=== PATIENT | female | born 1955 | race Caucasian/White ===

== ENCOUNTER 2023-09-14 05:48 | Emergency (ER) | payer MEDICARE, SELFPAY ==
[2023-09-14 05:50] VITALS: BP 180/104
--- NOTE | 2023-09-14 06:03 | ED.GENMED ---
History of Present Illness
General
Chief Complaint: Heart Rate Problem
Source: patient and spouse
Exam Limitations: none
Time Seen by Provider: 09/14/23 06:02
Nursing documentation reviewed up to this point in time: agreed with
History of Present Illness
History of Present Illness:
The patient is a 68-year-old female with a past medical history of thyroid disease, hyperlipidemia, and wpj-cxwaejo-daxhwdbbd diabetes who comes in with complaints of waking up this morning with palpitations and chest heaviness. Patient reports
that it lasted about 1 hour and now feels better but she still has some pressure in the left side of her chest. Initially, patient's EKG look like a normal sinus rhythm, however, on the monitoring specialist strip, patient had a rapid, irregular heart
rhythm recorded. Patient now appears to be in a normal sinus rhythm on the monitoring specialist. She denies a history of A-fib. She reports that from time to time she has very brief palpitations which subside within seconds. She denies history of PE
and DVT. She denies a history of stroke.
Past History
Past History
ED Past Medical History: Hypercholesterolemia, Other (Meningioma) and Other (Autoimmune thyroid disease)
ED Past Surgical History: Other
Social History
Tobacco: Non-smoker
Alcohol: Other
Drug: None
Personal:
Living: with family
Employment: Other
Family History
Family History: Other
Review of Systems
Review of Systems
Allergies reviewed?: Yes
All Other Systems: ROS reviewed and negative except as documented in HPI and ROS
Constitutional: Reports no symptoms
EENT: Reports no symptoms
Respiratory: Reports no symptoms
Cardiac: Reports chest pain and palpitations
ABD/GI: Reports no symptoms
: Reports no symptoms
Musculoskeletal: Reports no symptoms
Skin: Reports no symptoms
Neurological: Reports no symptoms
Endocrine: Reports no symptoms
Hematologic/Lymphatic: Reports no symptoms
Psychiatric: Reports no symptoms
Phy Exam
Physical Exam
Physical Exam:
Physical Exam
General: no apparent distress, not acutely ill, well-appearing
Neck: supple. no meningeal signs. normal psoterior pharynx
Heart: s1/s2 regular rate and rhythm, no murmur. equal radial pulses.
Lungs: no acute respiratory distress. clear bilaterally
Abdomen: normal bowel sounds. not tender. no CVAT
Neuro: alert and oriented. no focal neurological deficits
Skin: no rash
Psychiatric: well kept. interactive and cooperative
Extremities: no edema. no calf tenderness. negative homans. good distal pulses
Scores
[id number] Score for Afib Stroke Risk
Age in Years (65=0, 65-74=1, >/=75=2): 65-74
Sex (Female=+1): Female
Congestive Heart Failure History (Yes=+1): No
Hypertension History (Yes=+1): No
Stroke/TIA/Thromboembolism History (Yes=+2): No
Vascular Disease History (Yes=+1): No
Diabetes Mellitus (Yes=+1): Yes
Score: 3
Anticoagulation Recommendations: Recommend anticoagulation (as validated in nonvalvular fib)
Course
Orders/Labs/Results
Orders:
Orders
09/14/23 05:54
Electrocardiogram (*1) Urgent
Reason for Study: Tachycardia
EKG- Treatment ONCE
09/14/23 06:15
Cardiac Monitoring- Treatment ONCE
IV Insert/Care/Rem.- Treatment PRN
O2 Therapy [RESP] Urgent
Titrate/Wean O2 to maintain O2 sat greater than (%): 90
Special Instructions: Maintain sats >/=90%
Pulse Ox/spot Check [RESP] Urgent
Quantity: 1
Special Instructions: ON ROOM AIR
09/14/23 06:17
Complete Blood Count/With Diff Urgent
Comprehensive Metabolic Panel Urgent
TSH Urgent
Comment: ADD ON
Troponin I Urgent
09/14/23 06:34
Add On- LAB Urgent
Tests Added?: TSH
09/14/23 06:44
Electrocardiogram (*1) Urgent
Reason for Study: Palpitations
EKG- Treatment ONCE
Abnormal Lab Results
09/14/23
06:17
MPV 12.2 H fL
(7.4-10.4)
Glucose 143 H mg/dl
(70-99)
09/14/23 06:17
09/14/23 06:17
Vital Signs
Initial and Last Documented VS:
Initial Vital Signs
Temp Pulse Resp BP Pulse Ox
97.4 F 155 24 180/104 100
09/14/23 05:50 09/14/23 05:50 09/14/23 05:50 09/14/23 05:50 09/14/23 05:50
Last Documented Vital Signs
Temp Pulse Resp BP Pulse Ox
97.4 F 85 13 148/73 96
09/14/23 05:50 09/14/23 06:56 09/14/23 06:56 09/14/23 06:55 09/14/23 06:30
MDM/Problems Addressed
Differential Diagnosis Includes:
A-fib with RVR, AV marco tachycardia, a flutter
MDM/Problems Addressed:
Patient presents with acute palpitations and chest pain
Acute Exacerbation and/or Progression of Chronic Illness:
Patient is acutely hypertensive, however, she admits she does not feel well and just experienced tachycardia.
Acute Exacerbation and/or Progression of Chronic Illness: HTN
*Pulse Oximetry
Patient hypoxic: no
*EKG
Interpreted by ED Provider?: Yes
Interpretation: abnormal
Comparison EKG: no comparison EKG present
Rate: normal
Rhythm: sinus
Troutman: normal axis
Interval: normal interval
QRS Pattern: normal QRS
Ischemia: non-specific ST changes
*Director Of [employer]ustainable [employer] Interpretation
Rate: normal
Interpretation: normal
Rhythm: sinus
*Critical Care Note
Total Time (30-74mins, 75-104mins- exclusive of procedures): Not Applicable
Data Reviewed
Review of Other/Old Records Reveals: Testing (Cardiac echo appears normal from 2020)
Source: patient and spouse
Patient Management
Social determinants of health affecting care: Living situation and Strong social support
Discussion with other providers: Other (Dr. Kyle New from cardiology)
Escalation/DeEscalation of care consider admission/obs:
Although patient's EKGs do not capture the atrial fibrillation, when patient was on the monitoring specialist, we did capture a run of atrial fibrillation with heart rate in the 150s. We did scan this into the patient's chart and to give her a copy of
this as well. Patient reports that she had symptoms for about an hour. We have watched the patient in the emergency department for few hours and she has remained in a normal sinus rhythm. Because her symptoms were so brief, decision made to not
start patient on anticoagulation, especially because she is so hesitant to be started on any new medication. I did speak to Dr. Kyle New who recommended that patient be started on a beta-joanna and I explained to the patient that this is
important to decrease the threshold of her experiencing A-fib again, however, patient adamantly does not want to be started on a beta-joanna at this time. She reports that her blood pressure and heart rate are generally much lower than what they
are today. She reports she was on a beta-joanna in the past and she did not like how it made her feel. Given that patient looks so stable and well and her symptoms were so brief, I feel it is okay at this time to hold off on further pressuring
her to start new medication. Patient agreed to call cardiology office today to schedule an appointment for soon as possible. I explained to her that if the A-fib returns, she is certainly at increased risk of stroke. Patient understands this
risk. She seems very reliable and motivated to follow-up with cardiology.
Update Note
Update Note:
7:25 AM patient remains in a normal sinus rhythm. Second EKG done at 7:26 AM shows a normal sinus rhythm with heart rate of [address] waves, no acute ischemia
ED Attending Note
-
Portions of this chart may have been created with voice recognition software.� Occasional wrong word or��sound alike� substitutions may have occurred due to the inherent limitations of voice recognition software.
Discharge Plan
Departure
Patient Disposition: Home (Routine Discharge)
Date of Disposition: 09/14/23
Time of Disposition: 08:32
Patient with high blood pressure during this ER visit?: Yes
Condition: Good
Covid-19: Not Applicable
Discharge Problem:
Atrial fibrillation
Instructions: Atrial Fibrillation (DC), BLOOD PRESSURE
Prescriptions:
No Action
atorvastatin 20 mg Tablet
20 mg PO HS
polyethylene glycol 3350 [Miralax] 17 gram Powder In Packet
17 g PO QPMPRN PRN (Reason: constipation)
esomeprazole magnesium 40 mg Capsule,Delayed Release(Dr/Ec)
40 mg PO DAILY
magnesium 200 mg Tablet
200 mg PO HS
Patient Comments:
09/14/2023, uses capsule.
Systane (PF) 0.4-0.3 % Dropperette
0 drp BOTH EYES BIDPRN PRN (Reason: dry eyes)
Patient Comments:
09/14/2023, pt. states to use 1 dropperette per eye.
metformin 500 mg Tablet,Er Omari.Retention 24 Hr
1,000 mg PO QPM
cholecalciferol (vitamin D3) 50 mcg (2,000 unit) Tablet
50 mcg PO DAILY
cyanocobalamin (vitamin B-12)
1 tab PO DAILY
Patient Comments:
09/14/2023, sublingual tablet; pt. unsure of strength.
Referrals:
Librado Angela, DO [Family Provider] -
Paty Gracia MD [Active] - (Call today to schedule an appointment for as soon as possible. Tell the office that the emergency doctor discussed your case with Dr Kyle New from cardiology)
Interventions
Interventions:
*Risk Screen - Suicide Last Done: 09/14/23 06:09
*General Assessment Last Done: 09/14/23 06:09
*Neglect/Abuse Screening Last Done: 09/14/23 06:09
*ED COVID-19 Vaccine History Last Done: 09/14/23 06:09
*Nursing Disposition Last Done: 09/14/23 08:40
ED- Cardiac Assessment Last Done: 09/14/23 06:09
ED- Pulmonary Assessment Last Done: 09/14/23 06:09
Discharge Date and Time
Print Language: LITHUANIAN
[2023-09-14 06:38] LABS: % Basophils 0.9 % (0-2); % Eosinophils 3.9 % (0-6); % Immature Granulocytes 0.3 % (0-0.5); % Lymphocytes 33.1 % (20.5-51.1); % Neutrophils 55.8 % (42.2-75.2); Absolute Basophils 0.1 10^3/uL (0-0.2); Absolute Eosinophils 0.3 10^3/uL (0-0.7); Absolute Lymphocytes 2.2 10^3/uL (1.2-3.4); Absolute Monocytes 0.4 10^3/uL (0.1-0.6); Absolute Neutrophils 3.6 10^3/uL (1.4-6.5); Hematocrit 40.5 % (37.0-47.0); Hemoglobin 13.7 g/dL (12.0-16.0); Mean Corp Hgb Conc. 33.8 g/dL (33.0-37.0); Mean Corpuscular Hgb 28.3 pg (27.0-31.0); Mean Corpuscular Volume 83.7 fL (81.0-99.0); Mean Platelet Volume 12.2 fL (7.4-10.4); Nucleated Red Blood Cells % 0 %; Platelet Count 143 10^3/uL (130-400); Red Blood Cell Count 4.84 10^6/uL (4.20-5.40); Red Cell Dist. Width 13.9 % (11.5-14.5); White Blood Cell Count 6.5 10^3/uL (4.8-10.8)
[2023-09-14 06:46] LABS: ALT (SGPT) 27 U/L (0-35); AST (SGOT) 33 U/L (14-36); Albumin 4.2 g/dl (3.5-5.0); Alkaline Phosphatase 118 U/L (38-126); Blood Urea Nitrogen 13 mg/dl (7-17); Calcium 9.6 mg/dl (8.4-10.2); Carbon Dioxide 27 mmol/L (22-30); Chloride 104 mmol/L (98-107); Glucose 143 mg/dl (70-99); Potassium 3.8 mmol/L (3.5-5.1); Sodium 138 mmol/L (135-145); Total Bilirubin 0.4 mg/dl (0.2-1.3); Total Protein 6.6 g/dl (6.3-8.2); eGFR > 60.00
[2023-09-14 06:55] VITALS: BP 148/73
[2023-09-14 06:57] LABS: Troponin I < 0.012 ng/ml
[2023-09-14 07:00] VITALS: BP 150/74
[2023-09-14 07:55] LABS: TSH 3.56 uIU/ml (0.47-4.68)
[2023-09-14 08:00] VITALS: BP 145/66
== END 2023-09-14 08:44 | disposition home or self-care (01) ==
LOC: EMR 05:48
PROVIDERS: EMERGENCY PHYSICIAN Emergency Medicine; FAMILY PHYSICIAN Family Medicine
DX: I48.91 Unspecified atrial fibrillation (principal); I10 Essential (primary) hypertension; E78.00 Pure hypercholesterolemia, unspecified; E11.9 Type 2 diabetes mellitus without complications; E07.9 Disorder of thyroid, unspecified
CPT/HCPCS: 99284; 80053; 84443; 84484; 85025; 93005

== ENCOUNTER → 2023-09-19 10:49 | Outpatient (REF) | payer MEDICARE, SELFPAY | LOC: RAD 10:49 | PROVIDERS: ATTENDING PHYSICIAN Family Medicine | DX: M48.56XA Collapsed vertebra, not elsewhere classified, lumbar region, initial encounter for fracture (principal) | CPT/HCPCS: 77080 ==

== ENCOUNTER → 2023-10-03 13:27 | Outpatient (REF) | payer MEDICARE, SELFPAY | LOC: RCS 13:27 | PROVIDERS: ATTENDING PHYSICIAN Nuclear Medicine Nuclear Cardiology; FAMILY PHYSICIAN Family Medicine | DX: I48.0 Paroxysmal atrial fibrillation (principal); R00.2 Palpitations; R07.2 Precordial pain | CPT/HCPCS: 93017; 93350 ==

== ENCOUNTER → 2023-10-08 06:53 | Outpatient (REF) | payer MEDICARE, SELFPAY | LOC: RCS 06:53 | PROVIDERS: ATTENDING PHYSICIAN Nuclear Medicine Nuclear Cardiology; FAMILY PHYSICIAN Family Medicine | DX: R00.2 Palpitations (principal) | CPT/HCPCS: 93306 ==

== ENCOUNTER 2023-10-30 20:57 | Emergency (ER) | payer MEDICARE, SELFPAY ==
[2023-10-30 20:59] VITALS: BP 187/83
[2023-10-30 21:46] LABS: Urine Albumin Negative (Neg - Trace); Urine Bilirubin Negative (Negative); Urine Character Clear (Clear); Urine Color Straw; Urine Glucose Negative (Negative); Urine Ketone Negative (Negative); Urine Leukocyte 2+ (Negative); Urine Nitrite Negative (Negative); Urine Occult Blood Negative (Negative); Urine Urobilinogen Negative (Neg - 1+)
--- NOTE | 2023-10-30 21:49 | ED.GENMED ---
History of Present Illness
General
Chief Complaint: Urinary Symptoms
Source: patient
Time Seen by Provider: 10/30/23 21:41
History of Present Illness
History of Present Illness:
68yoF with a history of hyperlipidemia, type 2 diabetes, and urethral prolapse presenting for evaluation of difficulty urinating. Patient has been having ongoing issues with urination for a while and has a known urethral prolapse. Patient has been
following with urology and is currently on Flomax and estrogen cream. She was recently prescribed Gemtesa 75mg and she took the first dose around noon today. Since taking this medication, patient has been having increased difficulty with
urination. She states she is only able to urinate a few dribbles at a time. She denies any abdominal pain, flank pain, fevers, vomiting.
Past History
Past History
ED Past Medical History: Hypercholesterolemia, Other (Meningioma) and Other (Autoimmune thyroid disease)
ED Past Surgical History: Other
Social History
Tobacco: Non-smoker
Alcohol: Other
Drug: None
Personal:
Living: with family
Employment: Other
Family History
Family History: Other
Phy Exam
General Physical Exam
General Presentation: well appearing and no apparent distress
General age: appears stated age
General Skin: warm and dry
General Habitus: normal
General Mental: alert
General Hydration: appears well hydrated
Cardiovascular Exam
Cardiovascular Exam: regular rate/rhythm and no murmur
Pulmonary Exam
Pulmonary Exam: lungs clear, no respiratory distress, no rales and no rhonchi
Gastrointestinal Exam
Gastrointestinal Exam: non tender, soft and non distended
Skin Exam
Skin Exam: normal color and warm/dry
Psychiatric Exam
Psychiatric Exam: normal mood/affect
Course
Orders/Labs/Results
Orders:
Orders
10/30/23 21:41
Bladder Scan- Treatment ONCE
10/30/23 21:43
Urinalysis Reflex To Culture Urgent
Date Specimen was Collected: 10/30/23
Time Specimen was Collected: 21:38
Urine Microscopic Reflex Cult Urgent
Urine Culture Urgent
ROSE Source: U
Specimen Description:
Date Specimen was Collected: 10/30/23
Time Specimen was Collected: 21:38
Abnormal Lab Results
10/30/23
21:43
Leukocyte Esterase Rfl 2+ A
(Negative)
Urine Bacteria (Reflex) Few A
(Negative)
Vital Signs
Initial and Last Documented VS:
Initial Vital Signs
Temp Pulse Resp BP Pulse Ox
97.9 F 86 18 187/83 99
10/30/23 20:59 10/30/23 20:59 10/30/23 20:59 10/30/23 20:59 10/30/23 20:59
Last Documented Vital Signs
Temp Pulse Resp BP Pulse Ox
97.9 F 71 16 148/70 98
10/30/23 20:59 10/30/23 22:27 10/30/23 22:27 10/30/23 22:27 10/30/23 22:27
MDM/Problems Addressed
Differential Diagnosis Includes:
68yoF here with difficulty urinating. Hx of urethral prolapse. Took first dose of Gemtesa this afternoon and now having trouble urinating. Otherwise asymptomatic. She is hypertensive with otherwise normal vitals. She is well appearing in no
distress. Abdominal exam is benign. Differential diagnosis includes but is not limited to: medication side effect, urinary retention, UTI
Initial ED plan: Check bladder scan and UA.
*Critical Care Note
Total Time (30-74mins, 75-104mins- exclusive of procedures): Not Applicable
Update Note
Update Note:
Bladder scan 160cc. Patient able to provide urine sample. UA shows few bacteria although there is no overt signs of infection. Urine culture sent. Urinary retention is known side effect of Gemtesa. No indication for Ba catheter at this time and
she is able to void. She was advised to discontinue Gemtesa and f/u with her urologist. ED return precautions discussed. She was discharged in stable condition.
ED Attending Note
-
Portions of this chart may have been created with voice recognition software.� Occasional wrong word or��sound alike� substitutions may have occurred due to the inherent limitations of voice recognition software.
Discharge Plan
Departure
Patient Disposition: Home (Routine Discharge)
Date of Disposition: 10/30/23
Time of Disposition: 22:20
Patient with high blood pressure during this ER visit?: Yes
Discharge Problem:
Difficulty urinating
Instructions: Urinary retention - Discharge instructions
Prescriptions:
No Action
atorvastatin 20 mg Tablet
20 mg PO HS
polyethylene glycol 3350 [Miralax] 17 gram Powder In Packet
17 g PO QPMPRN PRN (Reason: constipation)
esomeprazole magnesium 40 mg Capsule,Delayed Release(Dr/Ec)
40 mg PO DAILY
magnesium 200 mg Tablet
200 mg PO HS
Patient Comments:
09/14/2023, uses capsule.
Systane (PF) 0.4-0.3 % Dropperette
0 drp BOTH EYES BIDPRN PRN (Reason: dry eyes)
Patient Comments:
09/14/2023, pt. states to use 1 dropperette per eye.
metformin 500 mg Tablet,Er Omari.Retention 24 Hr
1,000 mg PO QPM
cholecalciferol (vitamin D3) 50 mcg (2,000 unit) Tablet
50 mcg PO DAILY
cyanocobalamin (vitamin B-12)
1 tab PO DAILY
Patient Comments:
09/14/2023, sublingual tablet; pt. unsure of strength.
Referrals:
Librado Angela, DO [Family Provider] -
Activity Restrictions/Additional Instructions:
Stop taking Gemtesa.
Please follow-up with your urologist. Return to the ER with any worsening symptoms.
Interventions
Interventions:
*Risk Screen - Suicide Last Done: 10/30/23 21:02
*General Assessment Last Done: 10/30/23 21:02
*Neglect/Abuse Screening Last Done: 10/30/23 21:02
ED- Fall Risk Assessment Last Done: 10/30/23 22:29
*ED COVID-19 Vaccine History Last Done: 10/30/23 22:29
*Nursing Disposition Last Done: 10/30/23 22:29
ED-Female Genitourinary Assessment Last Done: 10/30/23 22:27
Discharge Date and Time
Discharge Date/Time: 10/30/23 22:29
Print Language: URDU
[2023-10-30 21:54] LABS: Urine Bacteria Few (Negative); Urine Red Blood Cell 0-2 /HPF (0-2); Urine Squamous Cell 26-30 /LPF (Few)
[2023-10-30 22:27] VITALS: BP 148/70
== END 2023-10-30 22:29 | disposition home or self-care (01) ==
LOC: EMR 20:57
PROVIDERS: EMERGENCY PHYSICIAN Student in an Organized Health Care Education/Training Program; FAMILY PHYSICIAN Family Medicine
DX: R39.198 Other difficulties with micturition (principal); E78.00 Pure hypercholesterolemia, unspecified; E11.9 Type 2 diabetes mellitus without complications
CPT/HCPCS: 99283; 51798; 81003; 81015; 87086

== ENCOUNTER 2023-11-04 00:04 | Emergency (ER) | payer MEDICARE, SELFPAY ==
[2023-11-04] VITALS (21 sets, daily range): BP systolic 109–173; BP diastolic 62–110; BMI 26.5
[2023-11-04] MEDS: CARDIZEM 20 MG IV (00:21)
[2023-11-04] MEDS: NSS 1000 IV (00:23)
[2023-11-04] MEDS: CARDIZEM 25 MG IV (00:32)
[2023-11-04] MEDS: CARDIZEM 125 IV (00:32)
--- NOTE | 2023-11-04 00:37 | ED.GENMED ---
History of Present Illness
<Andreas Cherry PA-C - Last Filed: 11/04/23 03:01>
General
Chief Complaint: Heart Rate Problem
Time Seen by Provider: 11/04/23 00:11
History of Present Illness
History of Present Illness:
68-year-old female with history of [id number] diabetes presents to the emergency department for evaluation of heart palpitations. Symptoms woke her up from sleep within the past 1 hour. She had a similar episode in early September, on
arrival to the emergency department the symptoms that terminated however a brief bout of a tachyarrhythmia was documented on a single rhythm strip that was suspicious for A-fib. She was discharged outpatient cardiology follow-up, a stress test and
echocardiogram were performed and these were unremarkable. She was given metoprolol for as needed use but not started on anticoagulants. Has not had any other bouts since that time. Currently feels chest heaviness but denies overt chest pain or
dyspnea.
Past History
<Andreas Cherry PA-C - Last Filed: 11/04/23 03:01>
Past History
ED Past Medical History: Hypercholesterolemia, Other (Meningioma) and Other (Autoimmune thyroid disease)
ED Past Surgical History: Other
Social History
Tobacco: Non-smoker
Alcohol: Other
Drug: None
Personal:
Living: with family
Employment: Other
Family History
Family History: Other
Review of Systems
<Andreas Cherry PA-C - Last Filed: 11/04/23 03:01>
Review of Systems
Allergies reviewed?: Yes
All Other Systems: ROS reviewed and negative except as documented in HPI and ROS
Phy Exam
<Andreas Cherry PA-C - Last Filed: 11/04/23 03:01>
Physical Exam
Physical Exam:
GEN: Well appearing, NAD, WDWN
HEENT: Oral mucosa moist, no scleral icterus
Cardiac: Markedly tachycardic, no obvious murmur
Lung: No respiratory distress, no tachypnea, Lungs clear to auscultation bilaterally
MSK: No gross deformity or injuries
Skin: Good color, no pallor or jaundice, no rashes
Neuro: AO x3, moves all extremities freely
Psych: Calm, cooperative
Course
<Andreas Cherry PA-C - Last Filed: 11/04/23 03:01>
Orders/Labs/Results
Orders:
Orders
11/04/23 00:08
ECG [Electrocardiogram (*1)] Urgent
Reason for Study: Tachycardia
EKG- Treatment ONCE
11/04/23 00:19
0.9% Sodium Chloride 1000 ml [Nss] 1,000 ml IV BOLUS
Diltiazem HCl [Cardizem] 20 mg IV NOW STA
Diltiazem HCl [Cardizem] 25 mg .ROUTE .STK-MED ONE
11/04/23 00:24
Complete Blood Count/No Diff Urgent
Comprehensive Metabolic Panel Urgent
Magnesium Urgent
11/04/23 00:27
Diltiazem HCl [Cardizem] 25 mg IV NOW STA
11/04/23 00:28
Diltiazem 125 mg/125 ml Nss [Cardizem] 125 mg in 125 ml .ROUTE .STK-MED
Diltiazem HCl [Cardizem] 25 mg .ROUTE .STK-MED ONE
11/04/23 00:30
Diltiazem 125 mg/125 ml Nss [Cardizem] 125 mg in 125 ml IV PER PROTOCOL
Initial dose in mg/hr, then titrate:: 5
Titrate to keep:: Heart rate 80-100 bpm
Titrate by mg/hr:: 5 mg/hr
Frequency of titrations (minutes):: 15
Maximum dose in mg/hr:: 15
11/04/23 00:51
Magnesium Sulfate 2 Gram/50 ml [Magnesium Sulfate] 2 gram in 50 ml IV NOW
Potassium Chloride [KCl] 40 meq PO NOW STA
11/04/23 01:34
Propofol [Diprivan] 20 ml .ROUTE .STK-MED
11/04/23 02:08
EKG [Electrocardiogram (*1)] Urgent
Reason for Study: Atrial Fibrillation
EKG- Treatment ONCE
11/04/23 02:12
Apixaban [Eliquis] 5 mg PO NOW STA
Abnormal Lab Results
11/04/23
00:24
MPV 11.5 H fL
(7.4-10.4)
Glucose 149 H mg/dl
(70-99)
11/04/23 00:24
11/04/23 00:24
Vital Signs
Initial and Last Documented VS:
Initial Vital Signs
Temp Pulse Resp BP Pulse Ox
97.8 F 158 24 115/96 100
11/04/23 00:06 11/04/23 00:06 11/04/23 00:06 11/04/23 00:06 11/04/23 00:06
Last Documented Vital Signs
Temp Pulse Resp BP Pulse Ox
98.0 F 73 14 124/64 97
11/04/23 02:42 11/04/23 02:42 11/04/23 02:42 11/04/23 02:42 11/04/23 02:42
<Josie Baez, DO - Last Filed: 11/04/23 02:17>
Orders/Labs/Results
Orders:
Orders
11/04/23 00:08
ECG [Electrocardiogram (*1)] Urgent
Reason for Study: Tachycardia
EKG- Treatment ONCE
11/04/23 00:19
0.9% Sodium Chloride 1000 ml [Nss] 1,000 ml IV BOLUS
Diltiazem HCl [Cardizem] 20 mg IV NOW STA
Diltiazem HCl [Cardizem] 25 mg .ROUTE .STK-MED ONE
11/04/23 00:24
Complete Blood Count/No Diff Urgent
Comprehensive Metabolic Panel Urgent
Magnesium Urgent
11/04/23 00:27
Diltiazem HCl [Cardizem] 25 mg IV NOW STA
11/04/23 00:28
Diltiazem 125 mg/125 ml Nss [Cardizem] 125 mg in 125 ml .ROUTE .STK-MED
Diltiazem HCl [Cardizem] 25 mg .ROUTE .STK-MED ONE
11/04/23 00:30
Diltiazem 125 mg/125 ml Nss [Cardizem] 125 mg in 125 ml IV PER PROTOCOL
Initial dose in mg/hr, then titrate:: 5
Titrate to keep:: Heart rate 80-100 bpm
Titrate by mg/hr:: 5 mg/hr
Frequency of titrations (minutes):: 15
Maximum dose in mg/hr:: 15
11/04/23 00:51
Magnesium Sulfate 2 Gram/50 ml [Magnesium Sulfate] 2 gram in 50 ml IV NOW
Potassium Chloride [KCl] 40 meq PO NOW STA
11/04/23 01:34
Propofol [Diprivan] 20 ml .ROUTE .STK-MED
11/04/23 02:08
EKG [Electrocardiogram (*1)] Urgent
Reason for Study: Atrial Fibrillation
EKG- Treatment ONCE
11/04/23 02:12
Apixaban [Eliquis] 5 mg PO NOW STA
Abnormal Lab Results
11/04/23
00:24
MPV 11.5 H fL
(7.4-10.4)
Glucose 149 H mg/dl
(70-99)
11/04/23 00:24
11/04/23 00:24
Vital Signs
Initial and Last Documented VS:
Initial Vital Signs
Temp Pulse Resp BP Pulse Ox
97.8 F 158 24 115/96 100
11/04/23 00:06 11/04/23 00:06 11/04/23 00:06 11/04/23 00:06 11/04/23 00:06
Last Documented Vital Signs
Temp Pulse Resp BP Pulse Ox
98.0 F 73 14 124/64 97
11/04/23 02:42 11/04/23 02:42 11/04/23 02:42 11/04/23 02:42 11/04/23 02:42
Procedures
<Andreas Cherry PA-C - Last Filed: 11/04/23 03:01>
Cardioversion
Indication:: Afib
Performed by:: Andreas Cherry PA-C, Josie Baez,
Synchronized?: Yes
Energy Used: 150 joules
Number of attempts: 1
Successful?: Yes
Complications: none
ASA Risk Score: Class I
Any reaction or bad outcome to prior sedation/anesthesia?: No history of a reaction
Sedation level to be attained: moderate
Chart and allergies reviewed: Yes
Patient reassessed prior to sedation: Yes
Time out completed at (validating right patient & procedure): 02:03
History of difficult intubation: No
Airway free of obstruction: Yes
Patient has a gag reflex: Yes
Patient is able to open mouth: Yes
Patient has no dentures: Yes
Patient has no loose teeth: Yes
Medication administered by Provider during Moderate Sedation: IV Propofol (mg)
Total dose administered: 75
Time drug administered: 02:03
Start Time: 02:03
Stop Time: 02:13
<Andreas Cherry PA-C - Last Filed: 11/04/23 03:01>
MDM/Problems Addressed
MDM/Problems Addressed:
Patient was started on IV rate controlling medications on arrival to the emergency department however despite escalating doses of IV diltiazem and IV magnesium the patient remained in a rapid atrial fibrillation. Given the new onset of her symptoms
within the past few hours she is a reasonable cardioversion candidate. After lengthy discussion at the bedside the patient consented to cardioversion, procedure was uncomplicated and she converted to normal sinus rhythm after electrical
cardioversion x 1. Will start the patient on Eliquis, her [id number] is 3 thus she will likely need lifelong anticoagulation. To prevent further bouts of A-fib we will start her on low-dose long-acting metoprolol. She will follow-up as an
outpatient with cardiology
<Andreas Cherry PA-C - Last Filed: 11/04/23 03:01>
Comment
Comment:
EKG independently interpreted by me shows a rapid atrial flutter at a rate of 150 with a 2-1 conduction, QTc of 357
*Critical Care Note
Total Time (30-74mins, 75-104mins- exclusive of procedures): Not Applicable
ED Attending Note
<Andreas Cherry PA-C - Last Filed: 11/04/23 03:01>
-
Portions of this chart may have been created with voice recognition software.� Occasional wrong word or��sound alike� substitutions may have occurred due to the inherent limitations of voice recognition software.
<Josie Baez DO - Last Filed: 11/04/23 02:17>
ED Attending Note
Patient seen and examined by attending physician: Yes
ED Attending Note:
11/04/2023 0215 AM
68-year-old woman with history of paroxysmal atrial fibrillation, 1 previous event, self-limiting 1 month ago.
Presents with recurrent palpitations and found to be in A-fib with rapid ventricular response.
Thus far rate improved with IV Cardizem but she remains somewhat symptomatic. Agreeable to cardioversion.
Patient is bright and alert, pleasant, easily communicative.
Heart is irregularly irregular, mildly tachycardic. She remains hemodynamically stable.
Lungs are clear to auscultation. No respiratory distress.
Patient successfully cardioverted with 1 synchronized shock. Moderate sedation with propofol 75 mg administered by myself.
No complications.
She is now awake and alert, offers no complaints.
As she is [id number] 3, will initiate anticoagulation with Eliquis 5 mg twice daily.
Recommend prompt follow-up with cardiology for recheck.
Discharge Plan
Departure
Patient Disposition: Home (Routine Discharge)
Date of Disposition: 11/04/23
Time of Disposition: 02:48
Patient with high blood pressure during this ER visit?: Yes
Discharge Problem:
Atrial fibrillation with RVR
Instructions: Atrial Fibrillation (DC), Moderate Sedation in Adults (DC)
Prescriptions:
New
Eliquis 5 mg tablet
5 mg PO BID Qty: 60 0RF
metoprolol succinate 25 mg tablet extended release 24 hr
12.5 mg PO DAILY Qty: 30 0RF
No Action
atorvastatin 20 mg Tablet
20 mg PO HS
polyethylene glycol 3350 [Miralax] 17 gram Powder In Packet
17 g PO QPMPRN PRN (Reason: constipation)
esomeprazole magnesium 40 mg Capsule,Delayed Release(Dr/Ec)
40 mg PO DAILY
magnesium 200 mg Tablet
200 mg PO HS
Patient Comments:
09/14/2023, uses capsule.
Systane (PF) 0.4-0.3 % Dropperette
0 drp BOTH EYES BIDPRN PRN (Reason: dry eyes)
Patient Comments:
09/14/2023, pt. states to use 1 dropperette per eye.
metformin 500 mg Tablet,Er Omari.Retention 24 Hr
1,000 mg PO QPM
cholecalciferol (vitamin D3) 50 mcg (2,000 unit) Tablet
50 mcg PO DAILY
cyanocobalamin (vitamin B-12)
1 tab PO DAILY
Patient Comments:
09/14/2023, sublingual tablet; pt. unsure of strength.
Referrals:
Mervin Newell DO [Active] - Follow up in 10 days
Librado Angela, [Family Provider] -
Activity Restrictions/Additional Instructions:
If you notice your heart rate is dropping into the 40s, or if you feel excessive tired, while on metoprolol, please discontinue in favor of NEEDED short acting metoprolol
You will be started on Eliquis to reduce your risk of stroke. If you sustain any blunt injuries to the head or torso while on this medication, you need to seek medical attention IMMEDIATELY
Follow up with your medical delivery technician for further management
Interventions
Interventions:
ED- Cardiac Assessment Last Done: 11/04/23 00:35
ED- Pulmonary Assessment Last Done: 11/04/23 00:35
Discharge Date and Time
Print Language: BAHRAINI
[2023-11-04 00:47] LABS: ALT (SGPT) 22 U/L (0-35); AST (SGOT) 27 U/L (14-36); Albumin 4.3 g/dl (3.5-5.0); Alkaline Phosphatase 115 U/L (38-126); Blood Urea Nitrogen 16 mg/dl (7-17); Calcium 9.9 mg/dl (8.4-10.2); Carbon Dioxide 25 mmol/L (22-30); Chloride 104 mmol/L (98-107); Glucose 149 mg/dl (70-99); Hematocrit 41.2 % (37.0-47.0); Hemoglobin 14.2 g/dL (12.0-16.0); Mean Corp Hgb Conc. 34.5 g/dL (33.0-37.0); Mean Corpuscular Hgb 29.5 pg (27.0-31.0); Mean Corpuscular Volume 85.7 fL (81.0-99.0); Mean Platelet Volume 11.5 fL (7.4-10.4); Platelet Count 152 10^3/uL (130-400); Potassium 3.8 mmol/L (3.5-5.1); Red Blood Cell Count 4.81 10^6/uL (4.20-5.40); Sodium 142 mmol/L (135-145); Total Bilirubin 0.4 mg/dl (0.2-1.3); Total Protein 6.9 g/dl (6.3-8.2); White Blood Cell Count 9.4 10^3/uL (4.8-10.8); eGFR > 60.00
[2023-11-04] MEDS: MAGNESIUM SULFATE 50 IV (01:06)
[2023-11-04] MEDS: KCL 40 MEQ PO (01:06)
[2023-11-04] MEDS: ELIQUIS 5 MG PO (02:30)
== END 2023-11-04 03:10 | disposition home or self-care (01) ==
LOC: EMR 00:04
PROVIDERS: Physician Assistant; EMERGENCY PHYSICIAN Emergency Medicine; FAMILY PHYSICIAN Family Medicine
DX: I48.91 Unspecified atrial fibrillation (principal); R03.0 Elevated blood-pressure reading, without diagnosis of hypertension; E11.9 Type 2 diabetes mellitus without complications
CPT/HCPCS: 99285; 92960; 96374; 96375; 96361; 99152; 80053; 83735; 85027; 93005

== ENCOUNTER 2023-11-15 10:33 | Emergency (ER) | payer MEDICARE, SELFPAY ==
[2023-11-15] VITALS (8 sets, daily range): BP systolic 126–173; BP diastolic 63–83; BMI 26.9
--- NOTE | 2023-11-15 11:40 | ED.GENMED ---
History of Present Illness
General
Chief Complaint: Heart Rate Problem
Source: patient
Exam Limitations: none
Time Seen by Provider: 11/15/23 10:50
Nursing documentation reviewed up to this point in time: agreed with
History of Present Illness
History of Present Illness:
68-year-old female with past medical history of recently diagnosed A-fib currently on Eliquis and metoprolol cardioverted 2 weeks ago presenting to the emergency department today with intermittent tachycardia upon exertion over the past 2 days. She
denies any chest pain or shortness of breath. She is currently asymptomatic while resting in bed.
Past History
Past History
ED Past Medical History: Hypercholesterolemia, Other (Meningioma) and Other (Autoimmune thyroid disease)
ED Past Surgical History: Other
Social History
Tobacco: Non-smoker
Alcohol: Other
Drug: None
Personal:
Living: with family
Employment: Other
Family History
Family History: Other
Review of Systems
Review of Systems
Allergies reviewed?: Yes
All Other Systems: ROS reviewed and negative except as documented in HPI and ROS
Phy Exam
Physical Exam
Physical Exam:
GENERAL: Alert , in no apparent distress
EYE: pupils equal and reactive
NECK: Supple, no significant adenopathy.
ENT: o/p clr, mmm.
CARDIAC: Regular rate and rhythm .
LUNGS: Clear breath sounds bilaterally, no acute respiratory distress, no wheezes/rales/rhonchi
ABDOMEN: Soft, without focal tenderness, no r/g, no cvat
NEUROLOGICAL: Alert and oriented, no focal neuro deficits
SKIN: Warm and dry, skin intact.
MUSCULOSKELETAL: No edema, well perfused.
PSYCH: Normal and appropriate interaction.
Course
Orders/Labs/Results
Orders:
Orders
11/15/23 10:37
ECG [Electrocardiogram (*1)] Urgent
Reason for Study: Atrial Fibrillation
EKG- Treatment ONCE
11/15/23 11:21
Complete Blood Count/With Diff Urgent
Comprehensive Metabolic Panel Urgent
Free T4 Urgent
Comment: ADD
Magnesium Urgent
TSH Urgent
Comment: ADD
11/15/23 11:58
Add On- LAB Urgent
Tests Added?: tsh free t4
11/15/23 13:34
Amiodarone [Pacerone] 200 mg PO NOW STA
Abnormal Lab Results
11/15/23
11:21
WBC 11.0 H 10^3/uL
(4.8-10.8)
MPV 12.0 H fL
(7.4-10.4)
Absolute Neuts (auto) 8.7 H 10^3/uL
(1.4-6.5)
Neutrophils % 79.1 H %
(42.2-75.2)
Lymphocytes % 14.0 L %
(20.5-51.1)
Glucose 150 H mg/dl
(70-99)
11/15/23 11:21
11/15/23 11:21
Vital Signs
Initial and Last Documented VS:
Initial Vital Signs
Temp Pulse Resp BP Pulse Ox
97.7 F 80 20 173/83 98
11/15/23 10:34 11/15/23 10:34 11/15/23 10:34 11/15/23 10:34 11/15/23 10:34
Last Documented Vital Signs
Temp Pulse Resp BP Pulse Ox
97.7 F 57 12 150/65 98
11/15/23 10:34 11/15/23 14:00 11/15/23 14:00 11/15/23 14:00 11/15/23 14:00
MDM/Problems Addressed
MDM/Problems Addressed:
68-year-old female presenting to the emergency department today with concerns of her heart rate elevating with exertion no symptoms at rest no chest pain no significant shortness of breath. Mildly tachycardic upon arrival but improving without
specific treatment. Vital signs are normal heart rate normal labs unremarkable case discussed with cardiology that we will see the patient. Cardiology saw the patient recommends amnio asymptomatic throughout ER stay stable for discharge return
precautions given.
*Critical Care Note
Total Time (30-74mins, 75-104mins- exclusive of procedures): Not Applicable
ED Attending Note
-
Portions of this chart may have been created with voice recognition software.� Occasional wrong word or��sound alike� substitutions may have occurred due to the inherent limitations of voice recognition software.
Discharge Plan
Departure
Patient Disposition: Home (Routine Discharge)
Date of Disposition: 11/15/23
Time of Disposition: 14:36
Patient with high blood pressure during this ER visit?: Yes
Condition: Good
Covid-19: Not Applicable
Discharge Problem:
Tachycardia
Instructions: Atrial Fibrillation (DC), Palpitations (DC), BLOOD PRESSURE
Prescriptions:
New
amiodarone 200 mg tablet
200 mg PO DAILY 14 Days Qty: 14 0RF
No Action
atorvastatin 20 mg Tablet
20 mg PO HS
polyethylene glycol 3350 [Miralax] 17 gram Powder In Packet
17 g PO QPMPRN PRN (Reason: constipation)
esomeprazole magnesium 40 mg Capsule,Delayed Release(Dr/Ec)
40 mg PO DAILY
magnesium 200 mg Tablet
200 mg PO HS
Patient Comments:
09/14/2023, uses capsule.
Systane (PF) 0.4-0.3 % Dropperette
0 drp BOTH EYES BIDPRN PRN (Reason: dry eyes)
Patient Comments:
09/14/2023, pt. states to use 1 dropperette per eye.
metformin 500 mg Tablet,Er Omari.Retention 24 Hr
1,000 mg PO QPM
cholecalciferol (vitamin D3) 50 mcg (2,000 unit) Tablet
50 mcg PO DAILY
cyanocobalamin (vitamin B-12)
1 tab PO DAILY
Patient Comments:
09/14/2023, sublingual tablet; pt. unsure of strength.
Eliquis 5 mg tablet
5 mg PO BID Qty: 60 0RF
metoprolol succinate 25 mg tablet extended release 24 hr
12.5 mg PO DAILY Qty: 30 0RF
Referrals:
Librado Angela DO [Family Provider] -
Activity Restrictions/Additional Instructions:
You came to the emergency department today with concerns of intermittently elevated heart rate. You started on amiodarone to control this. Please follow closely with cardiology otherwise return to the emergency department for any worsening, new or
concerning symptoms.
Interventions
Interventions:
*Risk Screen - Suicide Last Done: 11/15/23 11:17
*General Assessment Last Done: 11/15/23 11:17
*Neglect/Abuse Screening Last Done: 11/15/23 11:17
ED- Fall Risk Assessment Last Done: 11/15/23 11:17
ED- Cardiac Assessment Last Done: 11/15/23 11:17
ED- Pulmonary Assessment Last Done: 11/15/23 11:17
Discharge Date and Time
Print Language: SWEDISH
[2023-11-15 11:44] LABS: % Basophils 0.5 % (0-2); % Immature Granulocytes 0.4 % (0-0.5); % Neutrophils 79.1 % (42.2-75.2); Absolute Basophils 0.1 10^3/uL (0-0.2); Absolute Eosinophils 0.1 10^3/uL (0-0.7); Absolute Lymphocytes 1.5 10^3/uL (1.2-3.4); Absolute Monocytes 0.6 10^3/uL (0.1-0.6); Absolute Neutrophils 8.7 10^3/uL (1.4-6.5); Hematocrit 41.9 % (37.0-47.0); Mean Corp Hgb Conc. 33.4 g/dL (33.0-37.0); Mean Corpuscular Hgb 28.3 pg (27.0-31.0); Mean Corpuscular Volume 84.6 fL (81.0-99.0); Nucleated Red Blood Cells % 0 %; Platelet Count 185 10^3/uL (130-400); Red Blood Cell Count 4.95 10^6/uL (4.20-5.40); Red Cell Dist. Width 13.9 % (11.5-14.5)
[2023-11-15 12:03] LABS: ALT (SGPT) 25 U/L (0-35); AST (SGOT) 27 U/L (14-36); Albumin 4.7 g/dl (3.5-5.0); Alkaline Phosphatase 90 U/L (38-126); Blood Urea Nitrogen 15 mg/dl (7-17); Carbon Dioxide 29 mmol/L (22-30); Chloride 101 mmol/L (98-107); Estimated Creatinine Clearance 75 ml/min; Glucose 150 mg/dl (70-99); Magnesium 2.1 mg/dl (1.6-2.3); Potassium 4.3 mmol/L (3.5-5.1); Sodium 141 mmol/L (135-145); Total Bilirubin 0.6 mg/dl (0.2-1.3); Total Protein 7.3 g/dl (6.3-8.2); eGFR > 60.00
--- NOTE | 2023-11-15 13:05 | CON.CAR ---
Addendum entered and electronically signed by Mervin Newell DO 11/15/23 21:26:
I saw and examined the patient.
The Operational Communication Chief's note was reviewed and I agree with the note.
Comment:
Plan:
Recurrent palpitations with outpt HR episode in 150s suspect recurrent atrial flutter.
Discussed amiodarone in short term as bridge antiarrhythmic during process of EP eval for ablation.
Amiodarone 200 mg BID started.
Remains sinus. Outpt beta joanna dose lowered due to bradycardia.
Follow up with EP as scheduled next week
Reviewed with EP
Discussed with at bedside and ER.
Original Note:
Consultation
Consultation Request
Date/Time Consultation Performed: 11/15/23
Requesting Provider: Julio César Vidal PA-C
Performing Provider: Carmina Schwartz PA-C for Dr. Newell
Reason for Consultation: elevated HR, palpitations
Medical History
-
Chief Complaint: elevated HR, palpitations
History of Present Illness:
Patient is a 68-year-old female who was diagnosed with atrial fibrillation during ER visit 09/2023. then seen by cardiology, underwent stress test due to complaints of chest pressure as well which was negative for evidence of ischemia. Then had ER
visit 11/04/23, noted to be in 2:1 aflutter with HRs in 150s. She was started on eliquis and toprol 12.5mg daily and cardioverted in ER successfully. She is arranged for EP evaluation this upcoming Saturday 11/18 to discuss ablation. She reports
yesterday while out on a leisurely walk she noticed her heart rate jumped from the 70s to the 150s. She went back to her car and after sitting for a minute or 2 her heart rate improved. Of note, states her Apple Watch reported sinus tach during
that time. She states then this morning she went outside and noticed her heart rate jumped from normal to 128, and again improved with resting. She is very active at baseline playing pickle ball, hiking, kayaking. She states normally with playing
pickle ball for several hours her heart rate will get up to the 130s. Currently in sinus rhythm. Cardiology consulted for evaluation
PMH:
Paroxysmal atrial fibrillation/atrial flutter
Chronic anticoagulation with Eliquis
History of PVCs and PACs
DM 2
Hyperlipidemia
GERD
History of autoimmune mesenteric panniculitis
History of fibroids
History of vertigo
History of Kassy's with multinodular goiter
History of intracranial meningioma
Past Medical History
Past Medical History: Other (in HPI)
Social History
Tobacco: Non-Smoker
Alcohol: Occasional
Personal:
Living: With Family
Employment: Retired
Family History
Family History: CAD, Diabetes and Hypertension
Allergies / Home Medications
Allergy/AdvReac Type Severity Reaction Status Date / Time
Iodinated Contrast Media Allergy Unknown Verified 11/15/23 10:36
latex Allergy Unknown Verified 11/15/23 10:36
levofloxacin [From Levaquin] Allergy Unknown Verified 11/15/23 10:36
Sulfa (Sulfonamide Allergy Unknown Verified 11/15/23 10:36
Antibiotics)
�Medication �Instructions �Recorded �Confirmed �Type
atorvastatin 20 mg tablet 20 mg PO HS 09/14/23 09/14/23 History
cholecalciferol (vitamin D3) 50 50 mcg PO DAILY 09/14/23 09/14/23 History
mcg (2,000 unit) tablet
cyanocobalamin (vitamin B-12) 1 tab PO DAILY 09/14/23 09/14/23 History
esomeprazole magnesium 40 mg 40 mg PO DAILY 09/14/23 09/14/23 History
capsule,delayed release
magnesium 200 mg tablet 200 mg PO HS 09/14/23 09/14/23 History
metformin 500 mg 24 hr 1,000 mg PO QPM 09/14/23 09/14/23 History
tablet,extended release (gastric
retention)
peg 400-propylene glycol (PF) 0.4 0 drp BOTH EYES BIDPRN PRN dry eyes 09/14/23 09/14/23 History
%-0.3 % eye drops in a dropperette
(Systane (PF))
polyethylene glycol 3350 17 gram 17 g PO QPMPRN PRN constipation 09/14/23 09/14/23 History
oral powder packet (Miralax)
apixaban 5 mg tablet (Eliquis) 5 mg PO BID #60 tabs 11/04/23 Rx
metoprolol succinate 25 mg 12.5 mg (1/2 x 25 mg) PO DAILY #30 11/04/23 Rx
tablet,extended release 24 hr tabs
Review of Systems
-
History Source: Patient and Family
All other systems: Negative unless noted
Physical Exam
Vital Signs
Temp Pulse Resp BP Pulse Ox
97.7 F 55 12 126/63 99
11/15/23 10:34 11/15/23 12:45 11/15/23 12:45 11/15/23 12:00 11/15/23 12:45
Lab Results
11/15/23 11:21
11/15/23 11:21
Physical Exam
General: No Apparent Distress and Comfortable
HEENT: Normocephalic, Anicteric and Moist Mucous Membranes
Respiratory: Clear and Non Labored Respirations
Cardiac: S1/S2 and Regular Rhythm
GI: Soft, Non Tender, Non Distended and Normal Bowel Sounds
Musculoskeletal: No Clubbing, No Cyanosis and No Edema
Skin: Warm and Dry
Neuro: AO x 3
Impression / Plan
-
Primary Dry Finisher: Dr. Newell
Primary EP: Dr. Osborn
Assessment:
Presentation with elevated HR, palpitations
Paroxysmal atrial fibrillation/atrial flutter
Chronic anticoagulation with Eliquis
History of PVCs and PACs
DM 2
Hyperlipidemia
GERD
History of autoimmune mesenteric panniculitis
History of fibroids
History of vertigo
History of Kassy's with multinodular goiter
History of intracranial meningioma
ECHO 10/08/2023: EF 60%, trivial to small anterior pericardial effusion
Stress echo 10/03/2023: Normal stress echo, low risk stress test, mildly abnormal EKG during exercise with normal echo imaging
Plan:
-Patient presents with elevated heart rate and palpitations. Suspect episode with heart rate in the 150s was 2:1 atrial flutter, as previously seen during ER visit 11/03.
-Fortunately currently back in sinus rhythm
-Discussed use of antiarrhythmic drug therapy as bridge to ablation. After discussion with primary computer applications engineer, plan for amiodarone 200 mg twice daily. QTc 392ms by EKG 11/14.
-given baseline bradycardia, will decrease OP toprol dose from 12.5mg BID to 12.5mg HS due to side effects of wooziness/fatigue in AM
-continue eliquis
-OP EP follow up as scheduled 11/18 to discuss ablation
-d/w patient and at bedside
-d/w ER PA
Data Reviewed
-
EKG: Tracing Personally Visualized and interpreted
Medical Tests (Nuc Med, Echo etc): Report Reviewed by me
Labs: Labs Reviewed by me
Old Records: Reviewed
[2023-11-15] MEDS: PACERONE 200 MG PO (13:50)
== END 2023-11-15 15:12 | disposition home or self-care (01) ==
LOC: EMR 10:33
PROVIDERS: Physician Assistant; EMERGENCY PHYSICIAN Emergency Medicine; FAMILY PHYSICIAN Family Medicine; OTHER PHYSICIAN Nuclear Medicine Nuclear Cardiology
DX: R00.0 Tachycardia, unspecified (principal); I48.91 Unspecified atrial fibrillation; E78.00 Pure hypercholesterolemia, unspecified; E06.3 Autoimmune thyroiditis; E11.9 Type 2 diabetes mellitus without complications; K21.9 Gastro-esophageal reflux disease without esophagitis; Z79.899 Other long term (current) drug therapy; Z79.01 Long term (current) use of anticoagulants
CPT/HCPCS: 99284; 80053; 83735; 84439; 84443; 85025; 93005

== ENCOUNTER → 2023-12-17 10:00 | Outpatient (REF) | payer MEDICARE, SELFPAY | LOC: DHSLP 10:00 | PROVIDERS: ATTENDING PHYSICIAN Internal Medicine Critical Care Medicine; FAMILY PHYSICIAN Family Medicine | DX: G47.19 Other hypersomnia (principal); R06.83 Snoring; E66.9 Obesity, unspecified; I10 Essential (primary) hypertension; I48.91 Unspecified atrial fibrillation; J30.2 Other seasonal allergic rhinitis | CPT/HCPCS: 95806 ==

== ENCOUNTER → 2024-01-04 13:52 | Outpatient (REF) | payer MEDICARE, SELFPAY | LOC: WDC 13:52 | PROVIDERS: ATTENDING PHYSICIAN Family Medicine | DX: Z12.31 Encounter for screening mammogram for malignant neoplasm of breast (principal) | CPT/HCPCS: 77063; 77067 ==

== ENCOUNTER 2024-01-18 06:00 | Day surgery (SDC) | payer MEDICARE, SELFPAY ==
[2024-01-07 13:48] LABS: % Basophils 0.2 % (0-2); % Immature Granulocytes 0.5 % (0-0.5); % Lymphocytes 4.8 % (20.5-51.1); % Monocytes 0.9 % (1.7-9.3); % Neutrophils 93.6 % (42.2-75.2); Absolute Immature Granulocytes 0.1 10^3/uL (0-0.05); Absolute Lymphocytes 0.8 10^3/uL (1.2-3.4); Absolute Monocytes 0.2 10^3/uL (0.1-0.6); Absolute Neutrophils 16.2 10^3/uL (1.4-6.5); Hematocrit 40.3 % (37.0-47.0); Hemoglobin 13.8 g/dL (12.0-16.0); Mean Corp Hgb Conc. 34.2 g/dL (33.0-37.0); Mean Corpuscular Hgb 28.5 pg (27.0-31.0); Mean Corpuscular Volume 83.3 fL (81.0-99.0); Mean Platelet Volume 11.4 fL (7.4-10.4); Nucleated Red Blood Cells % 0 %; Platelet Count 195 10^3/uL (130-400); Red Blood Cell Count 4.84 10^6/uL (4.20-5.40); Red Cell Dist. Width 14.1 % (11.5-14.5); White Blood Cell Count 17.2 10^3/uL (4.8-10.8)
[2024-01-07 14:04] LABS: ALT (SGPT) 23 U/L (0-35); AST (SGOT) 24 U/L (14-36); Albumin 4.7 g/dl (3.5-5.0); Alkaline Phosphatase 86 U/L (38-126); Blood Urea Nitrogen 14 mg/dl (7-17); Calcium 10.2 mg/dl (8.4-10.2); Carbon Dioxide 26 mmol/L (22-30); Chloride 100 mmol/L (98-107); Glucose 182 mg/dl (70-99); Potassium 4.5 mmol/L (3.5-5.1); Sodium 138 mmol/L (135-145); Total Bilirubin 0.2 mg/dl (0.2-1.3); Total Protein 7.3 g/dl (6.3-8.2); eGFR > 60.00
[2024-01-07 14:14] VITALS: BMI 28.0
[2024-01-07 14:34] LABS: TSH 0.78 uIU/ml (0.47-4.68)
[2024-01-18] VITALS (15 sets, daily range): BP systolic 123–165; BP diastolic 57–87
--- NOTE | 2024-01-18 07:27 | ITS.CL.ABL ---
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
Ablation
Procedure Report:
Primary Internet Designer: Mervin Newell DO
Procedure Date: 01/18/2024
Patient History:
Patient is a pleasant 68-year-old female with a past medical history significant for dyslipidemia, diabetes mellitus type 2, Kassy's thyroiditis/thyroid nodules, vertigo, symptomatic paroxysmal atrial arrhythmias.
See H&P for complete details.
Indication:
Symptomatic paroxysmal atrial fibrillation
Symptomatic paroxysmal atrial flutter
Arrhythmia Specific History:
Prior Medical Therapies for Rate and Rhythm Control:
X Beta-joanna
[ ] Calcium channel-joanna
X Amiodarone
[ ] Dronederone
[ ] Sotalol
[ ] Flecainide
[ ] Dofetilide
X Options limited by bradycardia
[ ] Options limited by comorbid renal disease
Prior Procedural Therapies for AF/AFL:
X Cardioversion
[ ] Pulmonary Vein Isolation
[ ] Posterior Wall Isolation
[ ] Additional lines (Specify)
[ ] Surgical Denny-MAZE or PVI (Specify)
Procedure Performed:
X AF ablation procedure (84049) -- includes LA/CS pacing, trans-septal, 3D mapping, + ICE
[ ] +IV drug (59322)
[ ] +Other Arrhythmia (58447)
[ ] +Other AF Line/ablation (79367)
Risks and expected recovery has been explained in detail. Alternative options have been explored, and in a shared-decision making fashion we have decided that this was the most appropriate procedure.
Method
NPO status confirmed. Grounding pad applied. Defibrillator pads applied. Continuous surface ECG, pulse oximetry, and blood pressure were monitored. Procedure was performed under general anesthesia, with anesthesia services.
Both groins were clipped, prepped with Chloraprep, and draped in sterile fashion. Time out was called. Local anesthesia administered with bupivacaine. The right and left femoral veins were accessed for catheter placement, using ultrasound guidance,
micro-puncture needle/wire, and modified seldinger technique. 3 sheaths were placed. The following catheters were used:
[ ] Tacticath SE (D/F Curve) ablation catheter
X Viewflex 9Fr ICE catheter
X Inquiry decapolar 6Fr diagnostic catheter
[ ] CRD Hex 6Fr
[ ] Arctic Front Advance Cryoballoon ([ ]28mm[ ]23mm)
[ ] Achieve Advance mapping catheter ([ ]15mm[ ]20mm)
X FlexCath Contour 10 Fr with PulseSelect PFA Catheter
X Advisor HD Grid Mapping Catheter, SE
[ ] Acuson AcuNav 8 Fr ICE catheter
[ ]Other: [ ]
Intracardiac ultrasound (ICE) was carefully advanced into the right atrium to guide sheath placement over a J-wire, catheter placement, guide trans-septal puncture, identify potential complications, identify anatomic structures and ensure proper
contact between ablation catheter and tissue. A baseline basal trace/small circumferential pericardial effusion was noted on intracardiac ultrasound. This remained unchanged throughout the entirety of the case and at case completion. Patient
remained hemodynamically stable throughout the procedure.
Heparin was given prior to trans-septal puncture. Heparin was given to achieve and maintain a target ACT of 300-400 seconds throughout the procedure.
Trans-septal access was performed under ICE guidance. The trans-septal puncture was performed with a SafeSept wire through a Brockenbrough needle assembly through the steerable sheath. The wire was visualized as it entered the LSPV and system
advanced under ICE guidance and fluoroscopy into the LA. The Brockenbrough needle assembly, SafeSept wire and sheath dilator were removed under negative pressure. LA pressure was measured and recorded.
ICE and 3D mapping was performed to identify relevant cardiac structures. A careful 3D map was created to assess for regions of low-voltage and abnormal electrogram signals using HD grid mapping catheter and PulseSelect catheter. Additional mapping
was performed as outlined below.
Prior to ablation, glycopyrrolate was provided. PulseSelect catheter was advanced over J-wire to the ostium of each vein. Pulmonary vein isolation was performed with ostial and antral lesions in a circumferential manner. Contact was visualized via
EAM, ICE, fluoroscopy, and EGM signals. Following completion of ablation lesions, a post-ablation voltage/activation map was performed in sinus rhythm. Entrance and exit block were confirmed for each vein. Electrophysiology study was then performed
with the attempt of induction of atrial flutter as previously noted. Patient was noninducible for other atrial arrhythmias. Patient had brief nonsustained AF with spontaneous termination. Atrial flutter was noninducible during the study.
Catheter and sheath were removed from the left atrium and post-ablation intracardiac echo evaluation was consistent with pre-ablation with no changes (stable trace/small basal pericardial effusion around LV RV base) and there is no left atrial
thrombus or left ventricle thrombus seen. Hemostasis was obtained with Vascade for each sheath and with manual pressure. Protamine was used for reversal.
Estimated Blood Loss
5 mL
Complications
None
Fluoroscopy: 3.0 minutes; 9.0 mGy; DAP 0.923
Baseline Intervals:
Rhythm: SR
NC: 180 ms
QRS: 90 ms
QT: 451 ms
QTc: 451 ms
A-A: 1000 ms
R-R: 1000 ms
Post-Procedure Intervals:
NC: 180 ms
QRS: 90 ms
QT: 452 ms
AVWB: 330 ms
AVNERP: 600/260 ms
Recommendations
- Bedrest with straight-leg precautions as ordered
- Anticipate same day discharge if patient meeting clinical metrics
- Resume home medications as indicated
- Ok to resume anticoagulation tonight if patient and groin sites stable
- PPI daily for 30 days
- Plan for follow-up in office as scheduled
Gilbert Osborn DO
Clinical Cardiac Cementer Machine
cc: Mervin Newell DO; Librado Angela, DO
[2024-01-18 07:38] LABS: Glucose - Point of Care 122 mg/dl (70-99)
[2024-01-18 08:45] LABS: ACT-LR - POC 295 Seconds (116-155)
[2024-01-18 09:06] LABS: ACT-LR - POC 334 Seconds (116-155)
[2024-01-18 09:54] LABS: ACT-LR - POC 136 Seconds (116-155)
[2024-01-18 10:47] LABS: ACT-LR - POC > 397 Seconds (116-155)
[2024-01-18] MEDS: FLOMAX 0.4 MG PO (11:23)
--- NOTE | 2024-01-18 13:45 | W.PN.UPDATE ---
Update Note
Progress Note Update
68 yo WF s/p PVI (same day). She denies cp, sob, caryn diet, voiding, amb w/o dizziness. Her EKG SR HR 70-80's which she feels is too high, reviewed it is normal after procedure. R fem site c/d/i no HT, soft. She will resume Eliquis tonight. We will
decrease Amiodarone to 100mg daily and continue metoprolol. Activity restrictions reviewed. She will f/u Dr. Newell in 3 mo. She is for d/c home after 1pm.
== END 2024-01-18 14:00 | disposition home or self-care (01) ==
LOC: CATH 06:00
PROVIDERS: ATTENDING PHYSICIAN Internal Medicine Cardiovascular Disease; FAMILY PHYSICIAN Family Medicine; OTHER PHYSICIAN Nuclear Medicine Nuclear Cardiology
DX: I48.0 Paroxysmal atrial fibrillation (principal); E78.5 Hyperlipidemia, unspecified; E11.9 Type 2 diabetes mellitus without complications; I48.92 Unspecified atrial flutter; E06.3 Autoimmune thyroiditis; E04.2 Nontoxic multinodular goiter
CPT/HCPCS: C1732; C1894; C1759; C1733; C1766; 36415; 75572; 80053; 82962; 83735; 84443; 85025; 85347; 85610; 86850; 86900; 86901; 93005; 93656; C1760; Q9967

== ENCOUNTER 2024-06-15 11:52 | Emergency (ER) | payer MEDICARE, SELFPAY ==
[2024-06-15 11:58] VITALS: BP 183/82
[2024-06-15 13:44] VITALS: BMI 27.5
--- NOTE | 2024-06-15 13:46 | ED.GENMED ---
History of Present Illness
General
Chief Complaint: Heart Rate Problem
Source: patient
Exam Limitations: none
Time Seen by Provider: 06/15/24 13:28
Nursing documentation reviewed up to this point in time: agreed with
History of Present Illness
History of Present Illness:
Patient is a 69-year-old female presents to the ER for evaluation. Patient has a history of atrial fibs/a flutter and had a cardiac ablation by Dr. Parkinson January 17. She reports intermittently she has had some ranges in her heart rate which have
been elevated at times in the last past 2 weeks. Triage note reports that patient's heart rate seems irregular however she denies that ;she just reports it was between high and and low and not within the normal typical range for her. on Sunday she
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 They instructed her to take Toprol 25 mg which she has been doing she took it last night and yesterday however this morning woke up feeling very tired and dizzy and her heart rate was in the 40s. She
was nauseous and had diarrhea. She also had some left-sided jaw pain. She denies any chest pain today shortness of breath. She does have an appointment with the cardiology group tomorrow morning.
She denies any recent illness fever chills.
Past History
Past History
ED Past Medical History: Hypercholesterolemia, Other (Meningioma) and Other (Autoimmune thyroid disease)
ED Past Surgical History: Other
Social History
Tobacco: Non-smoker
Alcohol: Other
Drug: None
Personal:
Living: with family
Employment: Other
Family History
Family History: Other
Review of Systems
Review of Systems
Allergies reviewed?: Yes
All Other Systems: ROS reviewed and negative except as documented in HPI and ROS
Constitutional: Reports no symptoms
Respiratory: Reports no symptoms
Cardiac: Reports palpitations; Denies chest pain, diaphoresis or syncope
ABD/GI: Reports no symptoms
: Reports no symptoms
Musculoskeletal: Reports no symptoms
Skin: Reports no symptoms
Neurological: Reports no symptoms
Psychiatric: Reports no symptoms
Phy Exam
General Physical Exam
General Presentation: no apparent distress
General age: appears stated age
General Skin: warm and dry
General Habitus: normal
General Mental: alert
General Hydration: appears well hydrated
Cardiovascular Exam
Cardiovascular Exam: regular rate/rhythm, no murmur and normal peripheral pulses
Pulmonary Exam
Pulmonary Exam: lungs clear and no respiratory distress
Neurological Exam
Neurological Exam: alert and oriented x3
Musculoskeletal Exam
Musculoskeletal Exam: full ROM
Skin Exam
Skin Exam: normal color and warm/dry
Psychiatric Exam
Psychiatric Exam: normal mood/affect
Course
Orders/Labs/Results
Orders:
Orders
06/15/24 11:52
ECG [Electrocardiogram (*1)] Urgent
Reason for Study: Palpitations
06/15/24 11:53
EKG- Treatment ONCE
06/15/24 14:03
IV Insert/Care/Rem.- Treatment PRN
06/15/24 14:04
Complete Blood Count/With Diff Urgent
Comprehensive Metabolic Panel Urgent
Free T4 Urgent
TSH Reflex To Free T4 Urgent
Troponin I Urgent
06/15/24 16:38
EKG- Treatment ONCE
06/15/24 17:00
Electrocardiogram (*1) Stat
Reason for Study: Other
Other Reason for Exam: chest pain
06/15/24 17:11
Troponin I Urgent
06/15/24 17:37
Chest [CR Chest - 2 Views ] Urgent
Comment:
Reason For Exam: cp
Abnormal Lab Results
06/15/24
14:04
MPV 10.7 H fL
(7.4-10.4)
Absolute Neuts (auto) 8.4 H 10^3/uL
(1.4-6.5)
Neutrophils % 79.8 H %
(42.2-75.2)
Lymphocytes % 14.1 L %
(20.5-51.1)
Glucose 113 H mg/dl
(70-99)
TSH (Reflex) 0.30 L uIU/ml
(0.47-4.68)
06/15/24 14:04
06/15/24 14:04
Vital Signs
Initial and Last Documented VS:
Initial Vital Signs
Temp Pulse Resp BP Pulse Ox
97.8 F 73 18 183/82 97
06/15/24 11:58 06/15/24 11:58 06/15/24 11:58 06/15/24 11:58 06/15/24 11:58
Last Documented Vital Signs
Temp Pulse Resp BP Pulse Ox
97.8 F 57 12 152/64 99
06/15/24 11:58 06/15/24 16:00 06/15/24 14:00 06/15/24 13:47 06/15/24 14:00
MDM/Problems Addressed
MDM/Problems Addressed:
As documented patient is a 69-year-old female with history of A-fib a flutter and recently noted that her heart rate was not in her typical heart rate range. She denies feeling any irregular sensation. She had no actual chest pain. She felt some
soreness in her jaw. She was instructed by cardiology to take Toprol however heart rate was low this morning which did prompt the patient to come to the ER. She report it was in the 40s. She presented awake alert no acute distress. Asymptomatic
here in the ER. Heart rate was between the high 50s and 70s here .
she had 2 negative cardiac troponins; normal labs including ;normal electrolytes TSH minimally low however free T4 normal.
Patient has an appointment with [facility] cardiology tomorrow morning.
*Critical Care Note
Total Time (30-74mins, 75-104mins- exclusive of procedures): Not Applicable
ED Attending Note
-
Portions of this chart may have been created with voice recognition software.� Occasional wrong word or��sound alike� substitutions may have occurred due to the inherent limitations of voice recognition software.
Discharge Plan
Departure
Patient Disposition: Home (Routine Discharge)
Date of Disposition: 06/15/24
Time of Disposition: 18:10
Patient with high blood pressure during this ER visit?: Yes
Condition: Fair
Covid-19: Not Applicable
Discharge Problem:
Heart palpitations
Instructions: Palpitations (DC), BLOOD PRESSURE
Prescriptions:
No Action
atorvastatin 20 mg Tablet
20 mg PO HS
polyethylene glycol 3350 [Miralax] 17 gram Powder In Packet
17 g PO QPMPRN PRN (Reason: constipation)
Systane (PF) 0.4-0.3 % Dropperette
0 drp BOTH EYES BIDPRN PRN (Reason: dry eyes)
Patient Comments:
09/14/2023, pt. states to use 1 dropperette per eye.
metformin 500 mg Tablet,Er Omari.Retention 24 Hr
1,000 mg PO QPM
cholecalciferol (vitamin D3) 50 mcg (2,000 unit) Tablet
50 mcg PO DAILY
cyanocobalamin (vitamin B-12)
1 tab PO DAILY
Patient Comments:
09/14/2023, sublingual tablet; pt. unsure of strength.
Eliquis 5 mg tablet
5 mg PO BID Qty: 60 0RF
psyllium Packet
1 packet PO DAILY
fexofenadine 180 mg Tablet
180 mg PO DAILY
tamsulosin 0.4 mg Capsule
0.4 mg PO DAILY
docusate sodium [Colace] 100 mg Capsule
100 mg PO DAILY
estradiol 0.01 % (0.1 mg/gram) Cream
1 appful VAGINAL .2 TIMES A WEEK
metoprolol succinate 25 mg tablet extended release 24 hr
12.5 mg PO QPM
esomeprazole magnesium [Nexium] 40 mg Capsule,Delayed Release(Dr/Ec)
40 mg PO DAILY
amiodarone 200 mg tablet
100 mg PO DAILY Qty: 0 0RF
Referrals:
Martín Shepherd MD [Family Provider] -
Gilbert Osborn DO [Active] -
Activity Restrictions/Additional Instructions:
As discussed follow-up with your meat boner and slicer as scheduled tomorrow. You May hold off on taking Toprol this evening.
return if any worsening of symptoms
Interventions
Interventions:
*Risk Screen - Suicide Last Done: 06/15/24 11:58
*General Assessment Last Done: 06/15/24 11:58
*Neglect/Abuse Screening Last Done: 06/15/24 11:58
*ED COVID-19 Vaccine History Last Done: 06/15/24 13:49
ED- Cardiac Assessment Last Done: 06/15/24 13:52
ED- Pulmonary Assessment Last Done: 06/15/24 13:52
Discharge Date and Time
Print Language: URDU
[2024-06-15 13:47] VITALS: BP 152/64
[2024-06-15 14:00] VITALS: BP 158/68
[2024-06-15 14:14] LABS: % Basophils 0.5 % (0-2); % Eosinophils 0.8 % (0-6); % Immature Granulocytes 0.3 % (0-0.5); % Lymphocytes 14.1 % (20.5-51.1); % Monocytes 4.5 % (1.7-9.3); % Neutrophils 79.8 % (42.2-75.2); Absolute Basophils 0.1 10^3/uL (0-0.2); Absolute Eosinophils 0.1 10^3/uL (0-0.7); Absolute Lymphocytes 1.5 10^3/uL (1.2-3.4); Absolute Monocytes 0.5 10^3/uL (0.1-0.6); Absolute Neutrophils 8.4 10^3/uL (1.4-6.5); Hematocrit 41.1 % (37.0-47.0); Hemoglobin 13.9 g/dL (12.0-16.0); Mean Corp Hgb Conc. 33.8 g/dL (33.0-37.0); Mean Corpuscular Hgb 28.4 pg (27.0-31.0); Mean Platelet Volume 10.7 fL (7.4-10.4); Nucleated Red Blood Cells % 0 %; Platelet Count 167 10^3/uL (130-400); Red Blood Cell Count 4.89 10^6/uL (4.20-5.40); Red Cell Dist. Width 14.1 % (11.5-14.5); White Blood Cell Count 10.5 10^3/uL (4.8-10.8)
[2024-06-15 14:26] LABS: ALT (SGPT) 25 U/L (0-35); AST (SGOT) 24 U/L (14-36); Albumin 4.2 g/dl (3.5-5.0); Alkaline Phosphatase 110 U/L (38-126); Blood Urea Nitrogen 17 mg/dl (7-17); Carbon Dioxide 28 mmol/L (22-30); Chloride 105 mmol/L (98-107); Estimated Creatinine Clearance 66 ml/min; Glucose 113 mg/dl (70-99); Potassium 4.6 mmol/L (3.5-5.1); Sodium 139 mmol/L (135-145); Total Bilirubin 0.6 mg/dl (0.2-1.3); Total Protein 6.8 g/dl (6.3-8.2); eGFR > 60.00
[2024-06-15 14:37] LABS: Troponin I < 0.012 ng/ml
[2024-06-15 15:00] VITALS: BP 130/61
[2024-06-15 15:44] LABS: Free T4 2.11 ng/dl (0.78-2.19)
[2024-06-15 16:00] VITALS: BP 130/56
[2024-06-15 17:42] LABS: Troponin I < 0.012 ng/ml
== END 2024-06-15 18:23 | disposition home or self-care (01) ==
LOC: EMR 11:52
PROVIDERS: Nurse Practitioner; EMERGENCY PHYSICIAN Emergency Medicine; FAMILY PHYSICIAN Family Medicine
DX: R00.2 Palpitations (principal); E78.00 Pure hypercholesterolemia, unspecified; I48.91 Unspecified atrial fibrillation
CPT/HCPCS: 99285; 71046; 80053; 84439; 84443; 84484; 85025; 93005

== ENCOUNTER → 2024-07-18 12:22 | Outpatient (REF) | payer MEDICARE, SELFPAY | LOC: HWRAD 12:22 | PROVIDERS: ATTENDING PHYSICIAN Internal Medicine Endocrinology, Diabetes & Metabolism; FAMILY PHYSICIAN Family Medicine | DX: E06.3 Autoimmune thyroiditis (principal); E04.2 Nontoxic multinodular goiter | CPT/HCPCS: 76536 ==

== ENCOUNTER → 2024-07-24 06:51 | Outpatient (REF) | payer MEDICARE, SELFPAY | LOC: RAD 06:51 | PROVIDERS: ATTENDING PHYSICIAN Internal Medicine Endocrinology, Diabetes & Metabolism; FAMILY PHYSICIAN Family Medicine; REFERRING PHYSICIAN Otolaryngology | DX: E06.3 Autoimmune thyroiditis (principal); E04.2 Nontoxic multinodular goiter | CPT/HCPCS: 78014; A9516 ==

== ENCOUNTER → 2024-08-19 07:43 | Outpatient (REF) | payer MEDICARE, SELFPAY ==
[2024-08-19 10:10] LABS: TSH Reflex To Free T4 0.15 uIU/ml (0.47-4.68)
[2024-08-19 10:35] LABS: Glycohemoglobin (HgbA1c) 6.4 % (4.0-5.6)
[2024-08-19 10:39] LABS: Free T4 1.56 ng/dl (0.78-2.19)
[2024-08-19 10:43] LABS: ALT (SGPT) 24 U/L (0-35); AST (SGOT) 25 U/L (14-36); Albumin 4.4 g/dl (3.5-5.0); Alkaline Phosphatase 78 U/L (38-126); Blood Urea Nitrogen 14 mg/dl (7-17); Calcium 10.1 mg/dl (8.4-10.2); Carbon Dioxide 29 mmol/L (22-30); Chloride 107 mmol/L (98-107); Glucose 119 mg/dl (70-99); HDL Cholesterol 76 mg/dl; LDL Cholesterol, Calculated 75 mg/dl; Potassium 4.7 mmol/L (3.5-5.1); Sodium 142 mmol/L (135-145); Total Bilirubin 0.5 mg/dl (0.2-1.3); Total Cholesterol 173 mg/dl (50-199); Total Protein 7.1 g/dl (6.3-8.2); Triglyceride 113 mg/dl (10-149); Very Low Density Lipoprotein 22 mg/dl (0-30); eGFR > 60.00
== END ==
LOC: REG 07:43
PROVIDERS: ATTENDING PHYSICIAN Family Medicine
DX: E05.90 Thyrotoxicosis, unspecified without thyrotoxic crisis or storm (principal); E11.8 Type 2 diabetes mellitus with unspecified complications; E78.2 Mixed hyperlipidemia
CPT/HCPCS: 36415; 80053; 80061; 83036; 84439; 84443; 84481

== ENCOUNTER 2024-09-13 19:54 | Emergency (ER) | payer MEDICARE, SELFPAY ==
[2024-09-13 19:54] VITALS: BMI 26.5
[2024-09-13 19:56] VITALS: BP 131/87
--- NOTE | 2024-09-13 22:26 | ED.GENMED ---
History of Present Illness
General
Chief Complaint: Musculo-Skeletal Complaint
Source: patient
Exam Limitations: none
Time Seen by Provider: 09/13/24 21:31
Nursing documentation reviewed up to this point in time: agreed with
History of Present Illness
History of Present Illness:
Patient is a 69-year-old female who presents to the emergency department for evaluation of right foot pain after inversion injury tonight around 7:30 PM. Patient states she was walking outside when she tripped on one of her 's shoes
inverting her right ankle. She fortunately was able to catch herself although has been having pain and swelling her right foot since injury. She has not tried to bear weight. She denies any numbness/tingling in right ankle or foot. She denies
any head strike or other injuries.
No other concerns today.
Past History
Past History
ED Past Medical History: Hypercholesterolemia, Other (Meningioma) and Other (Autoimmune thyroid disease)
ED Past Surgical History: Other
Social History
Tobacco: Non-smoker
Alcohol: Other
Drug: None
Personal:
Living: with family
Employment: Other
Family History
Family History: Other
Review of Systems
Review of Systems
Allergies reviewed?: Yes
All Other Systems: ROS reviewed and negative except as documented in HPI and ROS
Phy Exam
Physical Exam
Physical Exam:
Vitals: Mildly hypertensive, otherwise vital signs stable. Afebrile
General: Patient is well appearing, no acute distress
Skin: Warm and dry, no rashes or lesions
Head: Normocephalic, atraumatic
Throat: Protecting airway
Neck: Normal ROM, no cervical spine tenderness
Cardiac: Regular rate
Pulm: No apparent respiratory distress
Abdomen: Nondistended
Extremities: Area of ecchymoses and tenderness at right midfoot anterior to lateral malleolus. No obvious deformity. No bony tenderness to medial/lateral malleolus, head of left fibula, base of left fifth metatarsal, or calcaneus. Achilles
intact. Patient has full range of motion in left knee without pain. 2+ palpable DP pulse of right foot. Normal sensation and cap refill WNL.
Neuro: Grossly intact
Psychiatric: Normal affect.
Course
Orders/Labs/Results
Orders:
Orders
09/13/24 20:00
Ankle, Right 3 view CR [CR Ankle - Right Min 3 Views *] Urgent
Comment:
Reason For Exam: injury/pain/swelling
09/13/24 22:05
Foot, Right 3 View [CR Foot - Right Min 3 Views] Urgent
Comment:
Reason For Exam: fall
09/13/24 23:21
Ortho Boot Right- Treatment ONCE
Short or tall?: Short
Vital Signs
Initial and Last Documented VS:
Initial Vital Signs
Temp Pulse Resp BP Pulse Ox
98.3 F 84 18 131/87 100
09/13/24 19:56 09/13/24 19:56 09/13/24 19:56 09/13/24 19:56 09/13/24 19:56
Last Documented Vital Signs
Temp Pulse Resp BP Pulse Ox
98.3 F 84 18 131/87 100
09/13/24 19:56 09/13/24 19:56 09/13/24 19:56 09/13/24 19:56 09/13/24 22:26
MDM/Problems Addressed
Differential Diagnosis Includes:
Not limited to: Foot sprain, foot fracture, ankle fracture, Lisfranc injury, Achilles tendon rupture, etc.
MDM/Problems Addressed:
69-year-old female with right foot pain following inversion injury earlier tonight. No associated head strike or other injuries sustained. No numbness/tingling of affected foot. Patient has acceptable vital signs. Physical exam as above. X-rays
of right ankle and right foot without any evidence of acute fracture. Suspect likely sprain/contusion of right foot. Patient placed in Ortho boot and provided crutches for assistance with ambulation. Advised continue ice, elevation, compression.
Tylenol for pain. Return precautions discussed that she will follow-up with primary care and orthopedics as needed.
Chronic conditions affecting care:
N/A
Acute Exacerbation and/or Progression of Chronic Illness:
N/A
*Radiology
Radiology exam reviewed: preliminary read by ED provider (Right foot x-ray/right ankle x-ray without evidence of acute fracture) and radiology read reviewed
*Pulse Oximetry
SaO2: 100
Oxygen Mode of Delivery: Room air
Patient hypoxic: no
*EKG
Interpreted by ED Provider?: NA
*Associate Professor Physician Interpretation
Rate: Associate Professor Physician- N/A
*Critical Care Note
Total Time (30-74mins, 75-104mins- exclusive of procedures): Not Applicable
ED Attending Note
-
Portions of this chart may have been created with voice recognition software.� Occasional wrong word or��sound alike� substitutions may have occurred due to the inherent limitations of voice recognition software.
Discharge Plan
Departure
Patient Disposition: Home (Routine Discharge)
Date of Disposition: 09/13/24
Time of Disposition: 23:35
Patient with high blood pressure during this ER visit?: Yes
Discharge Problem:
Right foot injury
Instructions: Foot sprain - ED discharge instructions, BLOOD PRESSURE
Prescriptions:
No Action
atorvastatin 20 mg Tablet
20 mg PO HS
polyethylene glycol 3350 [Miralax] 17 gram Powder In Packet
17 g PO QPMPRN PRN (Reason: constipation)
Systane (PF) 0.4-0.3 % Dropperette
0 drp BOTH EYES BIDPRN PRN (Reason: dry eyes)
Patient Comments:
09/14/2023, pt. states to use 1 dropperette per eye.
metformin 500 mg Tablet,Er Omari.Retention 24 Hr
1,000 mg PO QPM
cholecalciferol (vitamin D3) 50 mcg (2,000 unit) Tablet
50 mcg PO DAILY
cyanocobalamin (vitamin B-12)
1 tab PO DAILY
Patient Comments:
09/14/2023, sublingual tablet; pt. unsure of strength.
Eliquis 5 mg tablet
5 mg PO BID Qty: 60 0RF
psyllium Packet
1 packet PO DAILY
fexofenadine 180 mg Tablet
180 mg PO DAILY
tamsulosin 0.4 mg Capsule
0.4 mg PO DAILY
docusate sodium [Colace] 100 mg Capsule
100 mg PO DAILY
estradiol 0.01 % (0.1 mg/gram) Cream
1 appful VAGINAL .2 TIMES A WEEK
metoprolol succinate 25 mg tablet extended release 24 hr
12.5 mg PO QPM
esomeprazole magnesium [Nexium] 40 mg Capsule,Delayed Release(Dr/Ec)
40 mg PO DAILY
amiodarone 200 mg tablet
100 mg PO DAILY Qty: 0 0RF
Referrals:
Martín Shepherd MD [Family Provider, Family Practice]
Gorge Woodall MD [Active, Orthopedics] - As needed
Activity Restrictions/Additional Instructions:
RETURN TO THE EMERGENCY DEPARTMENT WITH ANY INTRACTABLE PAIN IN RIGHT FOOT, NUMBNESS/TINGLING RIGHT FOOT, WORSENING CURRENT SYMPTOMS, OR ANY OTHER CONCERNS
- As discussed�there is no evidence of acute fracture on her x-ray imaging.
- Please keep foot in boot and weight-bear as tolerated. Continue to ice, elevate your right foot frequently over the next few days. Take Tylenol as needed for pain.
- Follow-up with orthopedics as needed for further evaluation/management and to ensure that your symptoms are improving
Monitor your symptoms closely and return to the emergency department with any acute worsening/new symptoms or any other concerns
Interventions
Interventions:
*Risk Screen - Suicide Last Done: 09/13/24 19:56
*General Assessment Last Done: 09/13/24 23:45
*Neglect/Abuse Screening Last Done: 09/13/24 19:56
*ED- Fall Risk Assessment Last Done: 09/13/24 23:45
*ED COVID-19 Vaccine History Last Done: 09/13/24 23:45
*Nursing Disposition Last Done: 09/13/24 23:45
ED-Musculoskeletal Assessment Last Done: 09/13/24 21:44
Discharge Date and Time
Discharge Date/Time: 09/13/24 23:45
Print Language: MONTENEGRIN
== END 2024-09-13 23:45 | disposition home or self-care (01) ==
LOC: EMR 19:54
PROVIDERS: EMERGENCY PHYSICIAN Student in an Organized Health Care Education/Training Program; FAMILY PHYSICIAN Family Medicine
DX: S99.921A Unspecified injury of right foot, initial encounter (principal); W01.0XXA Fall on same level from slipping, tripping and stumbling without subsequent striking against object, initial encounter; R03.0 Elevated blood-pressure reading, without diagnosis of hypertension
CPT/HCPCS: 99283; 73610; 73630

== ENCOUNTER 2024-11-18 10:33 | Emergency (ER) | payer MEDICARE, SELFPAY ==
[2024-11-18 10:34] VITALS: BP 163/76
[2024-11-18 10:54] LABS: Hematocrit 39.0 % (37.0-47.0); Hemoglobin 13.1 g/dL (12.0-16.0); Mean Corp Hgb Conc. 33.6 g/dL (33.0-37.0); Mean Corpuscular Volume 86.9 fL (81.0-99.0); Nucleated Red Blood Cells % 0 %; Platelet Count 147 10^3/uL (130-400); Red Cell Dist. Width 14.1 % (11.5-14.5)
[2024-11-18 11:11] LABS: ALT (SGPT) 16 U/L (0-35); AST (SGOT) 20 U/L (14-36); Albumin 4.1 g/dl (3.5-5.0); Alkaline Phosphatase 75 U/L (38-126); Blood Urea Nitrogen 10 mg/dl (7-17); Calcium 9.7 mg/dl (8.4-10.2); Carbon Dioxide 31 mmol/L (22-30); Chloride 102 mmol/L (98-107); Glucose 179 mg/dl (70-99); Lipase 88 U/L (23-300); Potassium 4.9 mmol/L (3.5-5.1); Sodium 136 mmol/L (135-145); Total Protein 6.7 g/dl (6.3-8.2); eGFR > 60.00
[2024-11-18 11:47] VITALS: BMI 26.1
--- NOTE | 2024-11-18 11:54 | ED.GENMED ---
History of Present Illness
General
Chief Complaint: Abdominal Pain
Source: patient
Exam Limitations: none
Time Seen by Provider: 11/18/24 11:45
History of Present Illness
History of Present Illness:
69-year-old female presents complaining of onset of mid abdominal pain and bloating sensation over the last 2 to 3 days. 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 She has a prior history of cholecystectomy. No nausea or
vomiting. She had a small bowel movement this morning. No associated urinary symptoms. She has a history of A-fib requiring ablation on Eliquis. No NSAID use regularly denies alcohol or caffeine use regularly. She denies any tarry or black
stools. Pain does not radiate to the back.
Past History
Past History
ED Past Medical History: Hypercholesterolemia, Other (Meningioma) and Other (Autoimmune thyroid disease)
ED Past Surgical History: Other
Social History
Tobacco: Non-smoker
Alcohol: Other
Drug: None
Personal:
Living: with family
Employment: Other
Family History
Family History: Other
Phy Exam
Physical Exam
Physical Exam:
General: Well-appearing female in no acute respiratory distress
HEENT: Normal cephalic atraumatic heart: Regular rate and rhythm no murmurs
Lungs: Clear no wheeze
Abd: Soft, tender to mid and right upper abdomen. No gaurding. No CVA tenderness
Ext: no cyanosis or edema
Course
Orders/Labs/Results
Orders:
Orders
11/18/24 10:41
Comprehensive Metabolic Panel Urgent
Lipase Urgent
11/18/24 10:42
Complete Blood Count/With Diff Urgent
11/18/24 12:23
CT Abd/pelvis W Iv Cont Urgent
Comment:
Reason For Exam: abdominal pain
11/18/24 12:25
Diphenhydramine [Benadryl] 50 mg IV NOW STA
Hydrocortisone Sod Succinate [Solu-Cortef] 200 mg IV NOW STA
Abnormal Lab Results
11/18/24 11/18/24
10:41 10:42
MPV 11.0 H fL
(7.4-10.4)
Absolute Neuts (auto) 6.7 H 10^3/uL
(1.4-6.5)
Neutrophils % 76.4 H %
(42.2-75.2)
Lymphocytes % 15.6 L %
(20.5-51.1)
Carbon Dioxide 31 H mmol/L
(22-30)
Glucose 179 H mg/dl
(70-99)
11/18/24 10:42
11/18/24 10:41
Vital Signs
Initial and Last Documented VS:
Initial Vital Signs
Temp Pulse Resp BP Pulse Ox
98.2 F 69 18 163/76 97
11/18/24 10:34 11/18/24 10:34 11/18/24 10:34 11/18/24 10:34 11/18/24 10:34
Last Documented Vital Signs
Temp Pulse Resp BP Pulse Ox
98.2 F 69 18 136/63 97
11/18/24 10:34 11/18/24 10:34 11/18/24 10:34 11/18/24 14:07 11/18/24 14:07
MDM/Problems Addressed
Differential Diagnosis Includes:
Abdominal pain and distention. Consider gastritis versus constipation versus bowel obstruction vs recurrent panniculitis.
Labs reviewed lipase normal liver functions normal. Pretty tender on exam. CT pending
*Pulse Oximetry
SaO2: 97
Oxygen Mode of Delivery: Room air
Patient hypoxic: no
*Critical Care Note
Total Time (30-74mins, 75-104mins- exclusive of procedures): Not Applicable
Update Note
Update Note:
CT demonstrates a focus of colonic diverticulitis in the right upper quadrant without perforation or abscess. Patient is quinolone allergic. Will prescribe Augmentin. Stable for discharge
ED Attending Note
-
Portions of this chart may have been created with voice recognition software.� Occasional wrong word or��sound alike� substitutions may have occurred due to the inherent limitations of voice recognition software.
Discharge Plan
Departure
Patient Disposition: Home (Routine Discharge)
Date of Disposition: 11/18/24
Time of Disposition: 15:46
Patient with high blood pressure during this ER visit?: No
Discharge Problem:
Diverticulitis
Instructions: Diverticulitis (DC)
Prescriptions:
New
amoxicillin-pot clavulanate 875-125 mg tablet
1 tab PO BID Qty: 20 0RF
No Action
atorvastatin 20 mg Tablet
20 mg PO HS
cyanocobalamin (vitamin B-12) 1,000 mcg Tablet
1,000 mcg PO DAILY Qty: 0
Systane (PF) 0.4-0.3 % Dropperette
1 drp BOTH EYES BIDPRN PRN (Reason: dry eyes)
cholecalciferol (vitamin D3) 50 mcg (2,000 unit) Tablet
50 mcg PO DAILY
Eliquis 5 mg tablet
5 mg PO BID Qty: 60 0RF
fexofenadine 180 mg Tablet
180 mg PO DAILY
tamsulosin 0.4 mg Capsule
0.4 mg PO HS
estradiol 0.01 % (0.1 mg/gram) Cream
1 appful VAGINAL MOWE
metoprolol succinate 25 mg tablet extended release 24 hr
12.5 mg PO QPM
esomeprazole magnesium [Nexium] 40 mg Capsule,Delayed Release(Dr/Ec)
40 mg PO DAILY
metformin 500 mg Tablet Extended Release 24 Hr
1,000 mg PO QPM
acetaminophen [Tylenol] 325 mg Tablet
650 mg PO Q6HPRN PRN (Reason: mild pain)
Referrals:
Martín Shepherd MD [Family Provider, Family Practice]
Activity Restrictions/Additional Instructions:
Clear liquids for 24 hours. Take antibiotic as directed. Return if worse otherwise follow-up with your doctor
Interventions
Interventions:
*Risk Screen - Suicide Last Done: 11/18/24 10:34
*General Assessment Last Done: 11/18/24 10:34
*Neglect/Abuse Screening Last Done: 11/18/24 11:48
*ED- Fall Risk Assessment Last Done: 11/18/24 11:48
*ED COVID-19 Vaccine History Last Done: 11/18/24 11:48
KW-Zynbyo-Lhmopyglxy Assessment Last Done: 11/18/24 11:43
Discharge Date and Time
Print Language: OCCITAN
[2024-11-18] MEDS: SOLU-CORTEF 200 MG IV (12:39)
[2024-11-18] MEDS: BENADRYL 50 MG IV (12:40)
[2024-11-18 12:47] VITALS: BP 153/74
[2024-11-18 13:00] VITALS: BP 134/66
[2024-11-18 14:07] VITALS: BP 136/63
[2024-11-18 15:15] VITALS: BP 132/58
[2024-11-18 15:56] VITALS: BP 139/68
== END 2024-11-18 16:11 | disposition home or self-care (01) ==
LOC: EMR 10:33
PROVIDERS: Emergency Medicine; EMERGENCY PHYSICIAN Emergency Medicine; FAMILY PHYSICIAN Family Medicine
DX: K57.32 Diverticulitis of large intestine without perforation or abscess without bleeding (principal); E78.00 Pure hypercholesterolemia, unspecified; I48.91 Unspecified atrial fibrillation; Z79.01 Long term (current) use of anticoagulants; Z90.49 Acquired absence of other specified parts of digestive tract
CPT/HCPCS: 96374; 96375; 99284; 74177; 80053; 83690; 85025; Q9967

== ENCOUNTER → 2025-01-05 13:46 | Outpatient (REF) | payer MEDICARE, SELFPAY | LOC: WDC 13:46 | PROVIDERS: ATTENDING PHYSICIAN Obstetrics & Gynecology; FAMILY PHYSICIAN Family Medicine | DX: Z12.31 Encounter for screening mammogram for malignant neoplasm of breast (principal) | CPT/HCPCS: 77063; 77067 ==

== ENCOUNTER → 2025-02-11 14:12 | Outpatient (REF) | payer MEDICARE, SELFPAY | LOC: HWRAD 14:12 | PROVIDERS: ATTENDING PHYSICIAN Internal Medicine Gastroenterology; FAMILY PHYSICIAN Family Medicine | DX: K57.92 Diverticulitis of intestine, part unspecified, without perforation or abscess without bleeding (principal) | CPT/HCPCS: 74176 ==

== ENCOUNTER 2025-03-11 06:18 | Day surgery (SDC) | payer MEDICARE, SELFPAY ==
[2025-03-11 08:41] LABS: Glucose - Point of Care 108 mg/dl (70-99)
== END 2025-03-11 09:56 | disposition home or self-care (01) ==
LOC: GI 06:18
PROVIDERS: ATTENDING PHYSICIAN Internal Medicine Gastroenterology
DX: K57.32 Diverticulitis of large intestine without perforation or abscess without bleeding (principal); K64.8 Other hemorrhoids; K57.30 Diverticulosis of large intestine without perforation or abscess without bleeding; R13.10 Dysphagia, unspecified; K44.9 Diaphragmatic hernia without obstruction or gangrene; K31.89 Other diseases of stomach and duodenum; K29.50 Unspecified chronic gastritis without bleeding
CPT/HCPCS: 43239; 45378; 82962; 88305; 88342